=== PATIENT | female | born 1940 | race Two or more races ===

== ENCOUNTER 2023-01-15 07:33 | Inpatient (IN) | payer MEDICARE, OTHER ==
[~2023-01-15] VITALS: Ht 152.4 cm; Wt 54.0 kg
[~2023-01-15 07:33] MED LIST: CLON0.5T4 PO; ESCI10TA PO; MEMA1CAP3 PO; NEBI5TAB8 PO; OLME40TA18 PO; PANT40TA49 PO; SIMV-49 PO; SOLI5TAB2 PO
--- NOTE | 2023-01-15 07:50 | NUR ---
REceived pt 82 yrs female from home c/o abdominale pain and epegastric pain for one hr ago with nuasea examin by DR. MCKINLEY AT BED SIDE
--- NOTE | 2023-01-15 07:50 | NUR ---
INSERTED ANGO CATHETER G 22 ON RT AC BLOOD DROW AND SENT TO LAB abdominal pain 04/22 Morphin 4mg and zofran 4mg slow ivp given
[2023-01-15] MEDS ORDERED: ONDANSETRON HCL/PF 4 MG/2 ML VIAL IVP ONE (08:00)
[2023-01-15] MEDS ORDERED: ONDANSETRON HCL/PF 4 MG/2 ML VIAL ONE (08:00)
[2023-01-15] MEDS ORDERED: MORPHINE SULFATE INJ 4 MG/ML DISP.SYRIN ONE (08:01)
[2023-01-15] MEDS: MORPHINE SULFATE INJ 2 MG/ML DISP.SYRIN IV ONE ×2 (08:02→08:03)
[2023-01-15 08:17] LABS: BASOPHILS # (AUTO) 0.1 K/uL (0.0-0.2); HEMATOCRIT 43 % (33-45); LYMPHOCYTES # (AUTO) 1.3 K/uL (0.8-4.8); MEAN CORPUSCULAR HGB CONC 33 g/dl (31.0-36.0); MEAN CORPUSCULAR VOLUME 94 fL (82-100); MONOCYTES # (AUTO) 0.8 K/uL (0.1-1.30); MONOCYTES % (AUTO) 11.6 % (2.0-12.0); NEUTROPHILS # (AUTO) 4.4 K/uL (1.8-8.9); NEUTROPHILS % (AUTO) 66.4 % (43.0-81.0); PLATELET COUNT (AUTO) 255 K/uL (150-450); RED BLOOD CELL COUNT(AUTO) 4.55 MIL/uL (4.0-5.2); WHITE BLOOD COUNT (AUTO) 6.6 K/uL (4.3-11.0)
--- NOTE | 2023-01-15 08:20 | NUR ---
resting at this time
[2023-01-15 08:30] LABS: ALANINE AMINOTRANSFERASE 26 U/L (12-78); ALBUMIN 3.8 g/dL (3.4-5.0); ALKALINE PHOSPHATASE 76 U/L (46-116); ASPARTATE AMINOTRANSFERASE 17 U/L (15-37); BILIRUBIN,DIRECT 0.1 mg/dL (0.0-0.2); BILIRUBIN,TOTAL 0.3 mg/dL (0.2-1.0); CALCIUM, SERUM 9.4 mg/dL (8.5-10.1); CARBON DIOXIDE 24 mmol/L (21-32); CHLORIDE 105 mmol/L (98-107); CREATININE 1.1 mg/dL (0.6-1.3); GLUCOSE 116 mg/dL (74-106); LIPASE 158 U/L (73-393); POTASSIUM 3.3 mmol/L (3.5-5.1); SODIUM SERUM 141 mmol/L (136-145); UREA NITROGEN, BLOOD 21 mg/dL (7-18)
--- NOTE | 2023-01-15 09:05 | NUR ---
To ct scan OF ABDOMIN
[2023-01-15] MEDS ORDERED: IOHEXOL-300 100 ML VIAL IV ONE (09:08)
[2023-01-15] MEDS ORDERED: IV NS 0.9% 250 ML IV ONE ×2 (09:08→12:53)
[2023-01-15] MEDS ORDERED: CT SWABBABLE VALVE TRANS SET 1 EA INFUS.SET MC ONE ×2 (09:08→12:53)
[2023-01-15] MEDS ORDERED: ASPIRIN 325 MG TABLET PO ONE (09:30)
[2023-01-15] MEDS ORDERED: POTASSIUM CHLORIDE 20 MEQ TAB.PRT.SR PO ONE ×2 (09:30→09:50)
--- NOTE | 2023-01-15 09:46 | NUR ---
SUBMITTED MOVE SHEET
[2023-01-15] MEDS ORDERED: ASPIRIN 325 MG TABLET ONE (09:50)
--- NOTE | 2023-01-15 10:28 | NUR ---
PAGED EPIC GAS BRAZER
--- NOTE | 2023-01-15 10:52 | NUR ---
AT BED SIDE KAMRYN AT BED SIDE CONDITION UP DATE AND PLAN OF CARE
[2023-01-15] MEDS ORDERED: ACETAMINOPHEN ES 500 MG TABLET PO ONE ×2 (11:00→11:30)
[2023-01-15] MEDS ORDERED: ACETAMINOPHEN ES 500 MG TABLET ONE (11:04)
--- NOTE | 2023-01-15 11:37 | NUR ---
BED 328-1
[2023-01-15] MEDS ORDERED: HYDROCODONE/APAP 5/325MG TABLET PO PRN (12:00)
[2023-01-15] MEDS ORDERED: Z GUARD REMEDY 4 OZ OINT TP PRN (12:00)
[2023-01-15] MEDS ORDERED: MAGNESIUM HYDROXIDE 30 ML UDC PO PRN (12:00)
[2023-01-15] MEDS ORDERED: MORPHINE SULFATE INJ 2 MG/ML DISP.SYRIN IV PRN (12:00)
[2023-01-15] MEDS ORDERED: NITROGLYCERIN 0.4 MG/TAB BOTTLE SL PRN (12:00)
[2023-01-15] MEDS ORDERED: ENOXAPARIN SODIUM 40 MG/0.4 ML DISP.SYRIN SQ SCH (12:00)
[2023-01-15] MEDS ORDERED: MAG HYDROX/AL HYDROX/SIMETH 30 ML UDC PO PRN (12:00)
--- NOTE | 2023-01-15 12:00 | NUR ---
REPEAT 2ND EKG AT BED SIDE
--- NOTE | 2023-01-15 12:21 | NUR ---
HAND OFF ANU HOPKINS RN TO ROOM 328-1 VIA GARNY STABLE VS AND CONDTION DINESES CHEST PAIN
[2023-01-15] MEDS ORDERED: VENL37.591 PO (12:30)
[2023-01-15] MEDS ORDERED: OMEP40CA21 PO (12:30)
[2023-01-15] MEDS ORDERED: AMIO100T PO (12:30)
[2023-01-15] MEDS ORDERED: GABA300C PO (12:30)
[2023-01-15] MEDS ORDERED: RIVA15TA PO (12:30)
[2023-01-15] MEDS ORDERED: CLON0.5T4 PO (12:30)
[2023-01-15] MEDS ORDERED: GABA-532 PO (12:30)
[2023-01-15] MEDS ORDERED: ESCI10TA PO (12:30)
[2023-01-15] MEDS ORDERED: ROSU20TA32 PO (12:30)
[2023-01-15] MEDS ORDERED: MEMA10TA56 PO (12:30)
[2023-01-15] MEDS ORDERED: HYDR-4076 PO (12:30)
[2023-01-15] MEDS ORDERED: CHOL100043 PO (12:30)
[2023-01-15] MEDS ORDERED: SOLI5TAB2 PO (12:30)
[2023-01-15] MEDS ORDERED: OLME40TA18 PO (12:30)
--- NOTE | 2023-01-15 12:43 | NUR ---
to ct ango via kenny pt awake and alert after complet procedur will be to room 328-1
[2023-01-15] MEDS ORDERED: METOPROLOL TARTRATE INJ 5 MG/5 ML AMPUL ONE ×3 (12:53→13:12)
[2023-01-15] MEDS ORDERED: NITROGLYCERIN 0.4 MG/TAB BOTTLE ONE (12:53)
[2023-01-15] MEDS ORDERED: IOHEXOL-350 100 ML VIAL IV ONE (12:53)
[2023-01-15] MEDS: METOPROLOL TARTRATE INJ 5 MG/5 ML AMPUL IVP PRN ×4 (13:00→13:15)
[2023-01-15] MEDS ORDERED: NITROGLYCERIN 0.4 MG/TAB BOTTLE SL ONE (13:00)
[2023-01-15 14:05] VITALS: BP 147/79
[2023-01-15 14:07] LABS: CHOLESTEROL 201 mg/dL (<200); HDL CHOLESTEROL 82 mg/dL (40-60); LDL 105 mg/dL (0-99); TRIGLYCERIDES 56 mg/dL (30-150)
--- NOTE | 2023-01-15 14:15 | NUR ---
ADMISSION CHILD PROTECTIVE INVESTIGATOR NOTE (DAY SHIFT) Patient arrived to [facility], Room 328 - Bed 1, via gurney from ED. Patient presented as alert and oriented x 4 accompanied by spouse who was able to translate for her from Nepali to Chilean because patient speaks primarily Chilean, originally from [place] when part of former [place]. Patient 's vital signs stable and afebrilte, temp = 98.9 F, BP = 147 /76, HR =66, RR= 16, O2Sat= 96% on RA, c/o headache/backache of 6/10. Patient had steady gait to bathroom and back to bed. Lung sounds clear to auscultation. HR sinus rythym in 60s now with past 1st Degree AV block. Auscultated active bowel sounds in all 4 abdominal quadrants. Skin appears intact throughout whole body. Patient has # 20 gauge PIV catheter to left hand that is clean, dry, intact, and flushes patent without resistance nor any signs of IV therapy complications. Oriented patient to call hicks/light system and safety protocols. Safety measures in place: bed in lowest position; bed brakes locked on; two bed side rails up; and call hicks/light with bed side table within reach of patient. Will continue to care for and monitor patient per MD POC.
[2023-01-15] MEDS: ONDANSETRON HCL/PF 4 MG/2 ML VIAL IVP PRN ×2 (15:46→22:01)
[2023-01-15 16:00] VITALS: BP 170/54
[2023-01-15] MEDS ORDERED: clonazePAM 0.5 MG TABLET PO PRN (17:30)
[2023-01-15] MEDS ORDERED: hydrALAZINE HCL 25 MG TABLET PO PRN (17:30)
[2023-01-15] MEDS ORDERED: ATORVASTATIN 40 MG TABLET PO SCH (18:00)
[2023-01-15] MEDS: busPIRone 5 MG TABLET PO SCH (18:57)
--- NOTE | 2023-01-15 19:00 | NUR ---
POLISH MAKER CLOSING NOTE (DAY SHIFT) Patient continues to be alert and oriented x 4 on room air without any signs of respiratory distress nor chest pain. Still c/o mild nausea despite being given zofran IV .Home medications reconciliation completed. Admission screening/questionaires for inpatient admission completed. Continues on telemetry with SR in 60s HR. Safety measures maintained. Will endorse to bottom presser RNSabrina, for TAMI.
--- NOTE | 2023-01-15 19:06 | NUR ---
RN NOTES: RN NOTES: UPON ENDORSEMENT SHE WAS LOOKING SLEEPY DAUGHTER PRESENT AT BEDSIDE, A/OX2-3, ZIMBABWEAN SPEAKING, FORGETFUL WITH PERIODS OF FORGETFULNESS,ON TELE MONITOR-SR RATE=70'S, ON ROOM AIR, ON BED REST, IV CANNULA ON THE LH G#20 INTACT AND PATENT, PER ENDORSEMENT SHE WAS ANXIOUS AND WORRIED, HER BP WAS HIGH,LATEST-170/56, ABLE TO WALK WITH ASSIST, MED RECON WAS DONE AND SENT TO PHARMACY PER RN, SKIN IS INTACT, NO HISTORY OF FALL, BED ALARM ON, SHE RECEIVED ZOFRAN AROUND 1430 AND NORCO, THEN CLONAZEPAM AT AROUND 1500, BUSPAR AT 1800, DAUGHTER LOU EXPRESSED HER REQUEST TO RESUME XARELTO 15 MG Q HS. RNSHAMAR EXPLAINED TO HER SHE WAS PRESCRIBED WITH ASA AND LOVENOX RIGHT NOW BUT WE WILL COMMUNICATE TO DR. DUVALL HER CONCERN. SAFETY AND ASPIRATION PRECAUTION OBSERVED, ORIENTED TO UNIT AND STAFF KEPT CALL LIGHT WITHIN EASY REACH.ABLE TO SWALLOW WHOLE PILL. -DAUGHTER REQUEST IF CAN STAY WITH HER TONIGHT, WE EXPLAINED WE WILL COMMUNICATE WITH CN FIRST.
--- NOTE | 2023-01-15 19:27 | NUR ---
RN NOTES; OUTGOING RN COMMUNICATE WITH REGARDING DAUGHTER-LOU REQUEST NOT TO D/C HER XARELTO, OF NOW SHE IS ON ASPIRIN AND LOVENOX.AWAITING FOR DR. DUVALL RESPOND AND NEW ORDER.
--- NOTE | 2023-01-15 19:28 | NUR ---
RN NOTES: DR. DUVALL REPLIED, HER CTCA WAS DONE AND ITS NEGATIVE, WITH NEW ORDER: 1)DISCONTINUE ASPIRIN 2)DISCONTINUE LOVENOX 3)OK TO CONTINUE ON XARELTO 15 Q HS PER DAUGHTER REQUEST -LOU EXPLAINED THAT SHE TAKE HER XARELTO DAILY AT BED TIME. -AT 1930 LOU PRESENT AT BEDSIDE NOTIFIED THAT DR. DE JESUS D/C THE ASP AND LOVENOX THEN CONTINUE ON XARELTO , SHE WAS VERY GREATFUL -SHE REQUEST FOR HER FATHER TO COME IN AND STAY OVERNIGHT, DISCUSSED WITH CHARGE NURSE, PER CN WE NEED TO ASKED PERMISSION FROM THE LABEL SEWER, BUT LONG HER MOTHER IS QUIET AND NOT ANXIOUS NO NEED FOR HER FATHER TO STAY, WE WILL NOTIFY THEM IF THERE IS A NEED.SHE AGREED.DAUGHTER LEFT AT 194.
--- NOTE | 2023-01-15 19:50 | NUR ---
RN NOTES: RECEIVED CALL FROM PHARMACY.SPOKE WITH YOHAN VERIFIED ORDER RECEIVED FROM DR. DUVALL, TO START ANDREW FINCH.
[2023-01-15 20:00] VITALS: BP 135/55
--- NOTE | 2023-01-15 20:23 | NUR ---
RN NOTES: SHE LOOKS MORE RELAX HER ARRIVED, NOTIFIED HE CAN STAY FOR AWHILE, HE IS FEEDING HER NOW.
--- NOTE | 2023-01-15 20:30 | NUR ---
RN NOTES: RECEIVED CALL FROM PHARMACY/SEP, HE SAID VESICARE IS NOT PROVIDED BY OUR PHARMACY, FAMILY NEEDS TO BRING IN THE MEDICATION. -EXPLAINED TO AT BED SIDE, UNABLE TO UNDERSTAND WELL, CALLED DAUGHTER LOU, PER DAUGHTER MEDICATION WAS GIVEN TO PHARMACY UPON ADMISSION, CALLED BACK PHARMACY/SEP AND NOTIFIED, HE SAID HE WILL CHECK IT AND CALL BACK. Addendum: 01/15/23 at 2038 by ELIZABETH VAUGHN RN ADDED NOTES: MONTOYA/PHARMACIST CALLED BACK AND NOTIFIED VESICARE WAS FOUND IN THE PHARMACY BROUGHT IN BY FAMILY UPON ADMISSION. -INSTRUCT NOT TO FEED HER TOO MUCH ITS NIGHT TIME.
[2023-01-15] MEDS ORDERED: ENOXAPARIN SODIUM 60 MG/0.6 ML DISP.SYRIN SQ SCH (21:00)
[2023-01-15] MEDS: RIVAROXABAN 15 MG TABLET PO SCH ×2 (21:02→22:00)
[2023-01-15] MEDS ORDERED: GABAPENTIN 300 MG CAPSULE PO SCH (22:00)
--- NOTE | 2023-01-15 22:01 | NUR ---
RN NOTES: VOMITED ONCE AFTER DINNER, REQUEST FOR ANTIEMETIC MEDICATION, PRN GIVEN, LEFT AROUND 2200.
--- NOTE | 2023-01-15 22:17 | NUR ---
RN NOTES: NAUSEATED, ASSISTED TO THE BATHROOM, AMBULATE WELL.WITH SUPERVISION. Addendum: 01/15/23 at 2245 by ELIZABETH VAUGHN RN ADDED NOTES: SHE VOMITED SMALL AMOUNT OF HER FOOD, AND ASSISTED BACK TO HER BED, NO CHANGES IN THE TELE MONITOR, REMAIN ON SINUS RHYTHM, ACTIVITY TOLERATED, NO CHEST PAIN.ENCOURAGE TO SLEEP AFTER HE TALK TO HER OVER THE PHONE.
[2023-01-15] MEDS: ACETAMINOPHEN 325 MG TABLET PO PRN (23:37)
--- NOTE | 2023-01-15 23:37 | NUR ---
RN NOTES: CALLED AND DAUGHTER TO HELP EXPLAIN TO HER SHE NEEDS TO SLEEP, SHE COMPLAINED OF HEADACHE PER , REQUEST TO GIVE TYLENOL FOR PAIN, GIVEN.
[2023-01-16] VITALS: BP 143/43
[2023-01-16 04:00] VITALS: BP 132/51
[2023-01-16 07:00] VITALS: BP 164/68
[2023-01-16 07:30] LABS: CALCIUM, SERUM 9.1 mg/dL (8.5-10.1); PHOSPHORUS 4.2 mg/dL (2.5-4.9); POTASSIUM 3.8 mmol/L (3.5-5.1)
[2023-01-16] MEDS ORDERED: PANTOPRAZOLE 40 MG TABLET.DR PO SCH ×2 (07:30)
[2023-01-16 07:33] LABS: BASOPHILS # (AUTO) 0.1 K/uL (0.0-0.2); BASOPHILS % (AUTO) 0.7 % (0.0-2.0); EOSINOPHILS % (AUTO) 0.8 % (0.0-6.0); HEMATOCRIT 36 % (33-45); HEMOGLOBIN 12.2 g/dL (11.5-14.8); LYMPHOCYTES # (AUTO) 1.4 K/uL (0.8-4.8); LYMPHOCYTES % (AUTO) 15.1 % (20.0-44.0); MEAN CORPUSCULAR HGB CONC 34 g/dl (31.0-36.0); MEAN CORPUSCULAR VOLUME 92 fL (82-100); NEUTROPHILS # (AUTO) 6.5 K/uL (1.8-8.9); NEUTROPHILS % (AUTO) 72.4 % (43.0-81.0); PLATELET COUNT (AUTO) 227 K/uL (150-450); RED BLOOD CELL COUNT(AUTO) 3.93 MIL/uL (4.0-5.2)
--- NOTE | 2023-01-16 07:36 | NUR ---
RN NOTES: ABLE TO SLEEP AND REST,REMAINS SINUS RHYTHM, NO COMPLAINTS OF CHEST PAIN, NO MORE NAUSEA AND VOMITING, AMBULATE TO THE BATHROOM FOR LABS IN THE MORNING, ON SERIAL EKG AND TROPONIN LEVEL, FOR ECHO, CARDIO F/Y FOR CTCA AND FOR PT EVAL, ENDORSED FOR CONTINUITY OF CARE,
--- NOTE | 2023-01-16 08:18 | NUR ---
RN OPENING NOTE RECEIVED PATIENT IN BED, AO X 2-3, IRAQI/GERMAN SPEAKING. ABLE TO RESPONDS ALL PHYSICAL STIMULI. RESPIRATORY EVEN AND UNLABORED IN ROOM AIR, IN NO ACUTE RESPIRATORY DISTRESS OBSERVED. SKIN IS WARM TO TOUCH, KEEP CLEAN/DRY. KEPT ELEVATED HOB FOR ASPIRATION PRECAUTION AND ENSURE AIRWAY, ALSO LOWEST BED POSITIONED. BED ALARM IS ON AT ALL TIMES FOR SAFETY. CALL LIGHT WITHIN REACH, WILL CONTINUE TO MONITOR.
[2023-01-16] MEDS: busPIRone 5 MG TABLET PO SCH ×2 (08:28→13:00)
--- NOTE | 2023-01-16 08:34 | NUR ---
HELD ONE OF DOSE PROTONIC DUE TO DUPLICATE.
[2023-01-16] MEDS ORDERED: ASPIRIN EC 81 MG TABLET.DR PO SCH (09:00)
[2023-01-16] MEDS ORDERED: VENLAFAXINE XR 37.5 MG CAP.SR.24H PO SCH (09:00)
[2023-01-16] MEDS ORDERED: RIVAROXABAN 15 MG TABLET PO SCH (09:00)
[2023-01-16] MEDS ORDERED: LOSARTAN POTASSIUM 50 MG TABLET PO SCH (09:00)
[2023-01-16] MEDS ORDERED: MEMANTINE HCL 5 MG TABLET PO SCH (09:00)
[2023-01-16] MEDS ORDERED: ESCITALOPRAM OXALATE (10 MG) 10 MG TABLET PO SCH (09:00)
[2023-01-16] MEDS ORDERED: GABAPENTIN 100 MG CAPSULE PO SCH (09:00)
[2023-01-16] MEDS ORDERED: VESICARE 5 MG PO SCH (09:00)
[2023-01-16] MEDS ORDERED: CHOLECALCIFEROL 1,000 UNIT TABLET (VIT D3) PO SCH (09:00)
--- NOTE | 2023-01-16 10:30 | NUR ---
GIVEN UPDATE TO THE GRAND SON; SHANNON ROQUE WHO WANTS TALK WITH MD. BERG AND GIVEN HIS NUMBER TO DR. CAICEDO.
[2023-01-16] MEDS: ACETAMINOPHEN 325 MG TABLET PO PRN (11:14)
--- NOTE | 2023-01-16 11:50 | NUR ---
PATIENT C/O HEADACHE, GIVEN TYLENOL 650 MG, AND NO FURTHER HEADACHE AT THIS TIME.
[2023-01-16 12:00] VITALS: BP 145/67
--- NOTE | 2023-01-16 12:44 | NUR ---
PATIENT C/O HAVE NO BM MORE THAN COUPLE OF DAYS. NEW ORDER DULCOLAX 5MG PRN. NOTED AND CARRY OUT.
[2023-01-16] MEDS ORDERED: BISACODYL (5 MG) 5 MG TABLET.DR PO PRN (13:00)
--- NOTE | 2023-01-16 13:18 | NUR ---
PATIENT C/O DIZZINESS, WILL HOLD BUSPAR.
--- NOTE | 2023-01-16 16:20 | NUR ---
PATIENT D/C TO HOME WITH HOME HEALTH, GIVEN DISCHARGE INSTRUCTION INCLUDE FOLLOW UP PRIMARY CARE IN ONE WEEK. PATIENT IN STABLE CONDITION, IN NO DISTRESS OBSERVED. LEFT FACILITY WITH WHEEL CHAIR ESCORTED BY STAFF TO THE PRIVATE CAR.
== END 2023-01-16 16:23 | disposition home or self-care (01) | DRG 281 ==
LOC: ER 08:21 → TELE 12:35
DX: I21.4 Non-ST elevation (NSTEMI) myocardial infarction (principal); I11.9 Hypertensive heart disease without heart failure; E87.6 Hypokalemia; E78.5 Hyperlipidemia, unspecified; J98.11 Atelectasis; I25.10 Atherosclerotic heart disease of native coronary artery without angina pectoris; I25.84 Coronary atherosclerosis due to calcified coronary lesion; F03.90 Unspecified dementia, unspecified severity, without behavioral disturbance, psychotic disturbance, mood disturbance, and anxiety; I08.0 Rheumatic disorders of both mitral and aortic valves; Z20.822 Contact with and (suspected) exposure to COVID-19; R10.13 Epigastric pain; K21.9 Gastro-esophageal reflux disease without esophagitis; K44.9 Diaphragmatic hernia without obstruction or gangrene; Z79.899 Other long term (current) drug therapy
CPT/HCPCS: 36415; 71045-TC; 75574; 80048-TC; 80061-TC; 80076-TC; 82962-TC; 83605-TC; 83690-TC; 83735-TC; 84100-TC; 84443-TC; 84484-TC; 85025-TC; 87081-TC; 93307-TC; C9803; G0378; J2270; J2405; J3490; J7030; J7050; Q9967

== ENCOUNTER 2023-01-23 07:41 | Emergency (ER) | payer MEDICARE, OTHER ==
[~2023-01-23] VITALS: Ht 157.5 cm; Wt 51.7 kg
[~2023-01-23 07:41] MED LIST changes: +AMIO100T PO; +CHOL100043 PO; +GABA-532 PO; +GABA300C PO; +HYDR-4076 PO; +MEMA10TA56 PO; -MEMA1CAP3 PO; -NEBI5TAB8 PO; +OMEP40CA21 PO; -PANT40TA49 PO; +RIVA15TA PO; +ROSU20TA32 PO; -SIMV-49 PO; +VENL37.591 PO
[2023-01-23] MEDS ORDERED: ONDANSETRON HCL/PF 4 MG/2 ML VIAL ONE (08:24)
[2023-01-23] MEDS ORDERED: MAG HYDROX/AL HYDROX/SIMETH 30 ML UDC ONE (08:24)
[2023-01-23] MEDS ORDERED: LIDOCAINE VISCOUS 2% UD 15 ML UDC ONE (08:25)
[2023-01-23] MEDS ORDERED: MAG HYDROX/AL HYDROX/SIMETH 30 ML UDC PO ONE (08:30)
[2023-01-23] MEDS ORDERED: ONDANSETRON HCL/PF 4 MG/2 ML VIAL IV ONE (08:30)
[2023-01-23] MEDS ORDERED: LIDOCAINE VISCOUS 2% UD 15 ML UDC MM ONE (08:30)
[2023-01-23] MEDS ORDERED: IV NS 0.9% 1,000 ML IV ONE (08:30)
--- NOTE | 2023-01-23 08:36 | NUR ---
PT EDUCATED ON THE NEED FOR URINE SAMPLE USING SET UP MACHINIST SERVICES. PT VERBALIZED UNDERSTANDING. PT STATES "NOT RIGHT NOW, I JUST WANT TO LAY HERE". ERLINDA ARENAS MADE AWARE
[2023-01-23] MEDS ORDERED: ACETAMINOPHEN 325 MG TABLET ONE (08:53)
[2023-01-23 08:55] LABS: CALCIUM, SERUM 9.5 mg/dL (8.5-10.1); CARBON DIOXIDE 30 mmol/L (21-32); CHLORIDE 105 mmol/L (98-107); GLUCOSE 107 mg/dL (74-106); POTASSIUM 3.9 mmol/L (3.5-5.1); SODIUM SERUM 145 mmol/L (136-145); UREA NITROGEN, BLOOD 19 mg/dL (7-18)
[2023-01-23] MEDS ORDERED: ACETAMINOPHEN 325 MG TABLET PO ONE (09:00)
[2023-01-23 09:08] LABS: BASOPHILS # (AUTO) 0.1 K/uL (0.0-0.2); BASOPHILS % (AUTO) 0.8 % (0.0-2.0); EOSINOPHILS % (AUTO) 0.5 % (0.0-6.0); HEMATOCRIT 41 % (33-45); HEMOGLOBIN 13.4 g/dL (11.5-14.8); LYMPHOCYTES # (AUTO) 0.9 K/uL (0.8-4.8); LYMPHOCYTES % (AUTO) 10.2 % (20.0-44.0); MEAN CORPUSCULAR HGB CONC 33 g/dl (31.0-36.0); MEAN CORPUSCULAR VOLUME 94 fL (82-100); MONOCYTES % (AUTO) 11.9 % (2.0-12.0); NEUTROPHILS # (AUTO) 6.5 K/uL (1.8-8.9); NEUTROPHILS % (AUTO) 76.6 % (43.0-81.0); PLATELET COUNT (AUTO) 211 K/uL (150-450); RED BLOOD CELL COUNT(AUTO) 4.37 MIL/uL (4.0-5.2); WHITE BLOOD COUNT (AUTO) 8.5 K/uL (4.3-11.0)
--- NOTE | 2023-01-23 09:14 | NUR ---
URINE SAMPLE OBTAINED AND SENT TO LAB
[2023-01-23 09:29] LABS: BILIRUBIN,URINE NEGATIVE (NEGATIVE); COLOR,URINE YELLOW (YELLOW); LEUKOCYTE ESTERASE ,URINE NEGATIVE (NEGATIVE); NITRITE, URINE NEGATIVE (NEGATIVE); PROTEIN,URINE NEGATIVE (NEGATIVE); UGLUCOSE NEGATIVE (NEGATIVE); UROBILINOGEN,URINE 0.2 EU/dL (0.2)
[2023-01-23 09:33] LABS: ALANINE AMINOTRANSFERASE 29 U/L (12-78); ALBUMIN 3.7 g/dL (3.4-5.0); ALKALINE PHOSPHATASE 70 U/L (46-116); ASPARTATE AMINOTRANSFERASE 17 U/L (15-37); BILIRUBIN,DIRECT 0.1 mg/dL (0.0-0.2); BILIRUBIN,TOTAL 0.2 mg/dL (0.2-1.0); LIPASE 119 U/L (73-393); TOTAL PROTEIN, SERUM 6.8 g/dL (6.4-8.2)
[2023-01-23] MEDS ORDERED: OMEP20TA20 PO (09:45)
[2023-01-23] MEDS ORDERED: ONDA4TAB11 PO (09:46)
[2023-01-23 10:10] VITALS: BP 168/84
== END 2023-01-23 10:11 | disposition home or self-care (01) ==
LOC: ER 07:57
DX: R10.84 Generalized abdominal pain (principal); R11.0 Nausea; I10 Essential (primary) hypertension; K21.9 Gastro-esophageal reflux disease without esophagitis; Z90.49 Acquired absence of other specified parts of digestive tract; Z79.899 Other long term (current) drug therapy
CPT/HCPCS: 99285; 74176; 96374; 96361; 85025; 80048; 83690; 80076; 81003; 36415; J2405; J7030; A4223

== ENCOUNTER 2023-02-11 00:04 | Emergency (ER) | payer MEDICARE, OTHER ==
[~2023-02-11] VITALS: Ht 149.9 cm; Wt 55.6 kg
[~2023-02-11 00:04] MED LIST changes: +OMEP20TA20 PO; +ONDA4TAB11 PO
[2023-02-11] MEDS ORDERED: IV NS 0.9% 1,000 ML IV ONE (00:30)
[2023-02-11] MEDS ORDERED: MORPHINE SULFATE INJ 2 MG/ML DISP.SYRIN IV ONE (00:30)
--- NOTE | 2023-02-11 00:31 | NUR ---
PT IS PRIMARY NICARAGUAN SPEAKING, INFORMED HER WAS ASLEEP AT HOME AND DOES NOT KNOW SHE IS AT THE HOS..."I AM NOT SURE BUT I THINK HIS NUMBER IS [phone]" ALETHA
--- NOTE | 2023-02-11 00:40 | NUR ---
Janet AOx4, able to express concerns. Primary language is [place] but patient able to express concerns in kinyarwanda. States she has been having abdominal pain for a while, questions what she has been eating. Discussed plan of care, patient verbalized agreement. All safety precautions taken.
[2023-02-11] MEDS ORDERED: MORPHINE SULFATE INJ 4 MG/ML DISP.SYRIN ONE (00:43)
[2023-02-11 01:24] LABS: BASOPHILS # (AUTO) 0.1 K/uL (0.0-0.2); EOSINOPHILS % (AUTO) 0.9 % (0.0-6.0); HEMATOCRIT 42 % (33-45); HEMOGLOBIN 13.9 g/dL (11.5-14.8); LYMPHOCYTES % (AUTO) 11.3 % (20.0-44.0); MEAN CORPUSCULAR HGB CONC 33 g/dl (31.0-36.0); MEAN CORPUSCULAR VOLUME 95 fL (82-100); MONOCYTES # (AUTO) 1.1 K/uL (0.1-1.30); MONOCYTES % (AUTO) 11.5 % (2.0-12.0); NEUTROPHILS % (AUTO) 75.3 % (43.0-81.0); PLATELET COUNT (AUTO) 234 K/uL (150-450); RED BLOOD CELL COUNT(AUTO) 4.46 MIL/uL (4.0-5.2); WHITE BLOOD COUNT (AUTO) 9.3 K/uL (4.3-11.0)
[2023-02-11 01:38] LABS: BILIRUBIN,URINE NEGATIVE (NEGATIVE); COLOR,URINE YELLOW (YELLOW); LEUKOCYTE ESTERASE ,URINE 3+ (NEGATIVE); NITRITE, URINE NEGATIVE (NEGATIVE); PROTEIN,URINE NEGATIVE (NEGATIVE); UGLUCOSE NEGATIVE (NEGATIVE); UROBILINOGEN,URINE 0.2 EU/dL (0.2)
[2023-02-11 01:39] LABS: BACTERIA,URINE Rare /HPF (None Seen); RBC,URINE 0-2 /HPF (0-2); SQUAMOUS EPITHELIAL CELL,UR Few /HPF (None Seen)
[2023-02-11 01:43] LABS: CALCIUM, SERUM 9.7 mg/dL (8.5-10.1); CARBON DIOXIDE 25 mmol/L (21-32); CHLORIDE 104 mmol/L (98-107); CREATININE 1.1 mg/dL (0.6-1.3); GLUCOSE 112 mg/dL (74-106); POTASSIUM 4.1 mmol/L (3.5-5.1); SODIUM SERUM 140 mmol/L (136-145); UREA NITROGEN, BLOOD 22 mg/dL (7-18)
[2023-02-11 01:47] LABS: ALANINE AMINOTRANSFERASE 29 U/L (12-78); ALBUMIN 3.9 g/dL (3.4-5.0); ALKALINE PHOSPHATASE 71 U/L (46-116); ASPARTATE AMINOTRANSFERASE 31 U/L (15-37); BILIRUBIN,TOTAL 0.6 mg/dL (0.2-1.0); LIPASE 124 U/L (73-393); TOTAL PROTEIN, SERUM 7.5 g/dL (6.4-8.2)
[2023-02-11] MEDS ORDERED: FAMOTIDINE/PF INJ 20 MG/2 ML VIAL IV ONE ×2 (02:00→02:06)
[2023-02-11] MEDS ORDERED: ONDANSETRON HCL/PF - ER 4 MG/2 ML VIAL IV ONE (02:00)
[2023-02-11] MEDS ORDERED: KETOROLAC TROMETHAMINE INJ 30 MG/ML VIAL IV ONE (02:00)
[2023-02-11] MEDS ORDERED: KETOROLAC TROMETHAMINE INJ 30 MG/ML VIAL ONE (02:06)
[2023-02-11] MEDS ORDERED: ONDANSETRON HCL/PF 4 MG/2 ML VIAL ONE (02:06)
[2023-02-11] MEDS ORDERED: CEFTRIAXONE 1GM BAG (ER ONLY) 1 GM/50 ML PIGGYBACK IV ONE (02:30)
[2023-02-11] MEDS ORDERED: CEFTRIAXONE 1GM BAG (ER ONLY) 50 ML IV ONE (02:35)
[2023-02-11] MEDS ORDERED: CEPH500T PO (04:14)
[2023-02-11 04:35] VITALS: BP 138/60
== END 2023-02-11 04:35 | disposition home or self-care (01) ==
LOC: ER 00:09
DX: N39.0 Urinary tract infection, site not specified (principal); R33.9 Retention of urine, unspecified; I10 Essential (primary) hypertension; K21.9 Gastro-esophageal reflux disease without esophagitis; Z90.89 Acquired absence of other organs; Z88.2 Allergy status to sulfonamides; Z88.8 Allergy status to other drugs, medicaments and biological substances; Z60.2 Problems related to living alone; Z79.899 Other long term (current) drug therapy
CPT/HCPCS: 99285; 74176; 96365; 96375; 96361; 51702; 85025; 80048; 87086; 83690; 80076; 81001; 36415; J2270; J3490; J1885; J2405; J7030; J0696

== ENCOUNTER 2023-04-09 08:45 | Inpatient (IN) | payer MEDICARE, OTHER ==
[~2023-04-09] VITALS: Ht 152.4 cm; Wt 50.8 kg
[~2023-04-09 08:45] MED LIST changes: +CEPH500T PO
[2023-04-09] MEDS ORDERED: MORPHINE SULFATE INJ 2 MG/ML DISP.SYRIN ONE (09:03)
[2023-04-09 09:05] LABS: BASOPHILS % (AUTO) 0.6 % (0.0-2.0); EOSINOPHILS % (AUTO) 1.5 % (0.0-6.0); HEMATOCRIT 38 % (33-45); HEMOGLOBIN 12.6 g/dL (11.5-14.8); LYMPHOCYTES # (AUTO) 1.1 K/uL (0.8-4.8); LYMPHOCYTES % (AUTO) 13.5 % (20.0-44.0); MEAN CORPUSCULAR HGB CONC 33 g/dl (31.0-36.0); MEAN CORPUSCULAR VOLUME 96 fL (82-100); MONOCYTES # (AUTO) 1.1 K/uL (0.1-1.30); MONOCYTES % (AUTO) 13.5 % (2.0-12.0); NEUTROPHILS # (AUTO) 5.6 K/uL (1.8-8.9); NEUTROPHILS % (AUTO) 70.9 % (43.0-81.0); PLATELET COUNT (AUTO) 220 K/uL (150-450); RED BLOOD CELL COUNT(AUTO) 3.92 MIL/uL (4.0-5.2); WHITE BLOOD COUNT (AUTO) 7.8 K/uL (4.3-11.0)
[2023-04-09 09:21] LABS: CALCIUM, SERUM 9.2 mg/dL (8.5-10.1); CARBON DIOXIDE 26 mmol/L (21-32); CHLORIDE 106 mmol/L (98-107); CREATININE 1.2 mg/dL (0.6-1.3); GLUCOSE 113 mg/dL (74-106); POTASSIUM 3.5 mmol/L (3.5-5.1); SODIUM SERUM 137 mmol/L (136-145); UREA NITROGEN, BLOOD 23 mg/dL (7-18)
[2023-04-09] MEDS ORDERED: MORPHINE SULFATE INJ 2 MG/ML DISP.SYRIN IV ONE (09:30)
[2023-04-09 09:34] LABS: ALANINE AMINOTRANSFERASE 19 U/L (12-78); ALBUMIN 3.3 g/dL (3.4-5.0); ALKALINE PHOSPHATASE 54 U/L (46-116); ASPARTATE AMINOTRANSFERASE 11 U/L (15-37); BILIRUBIN,DIRECT 0.1 mg/dL (0.0-0.2); BILIRUBIN,TOTAL 0.4 mg/dL (0.2-1.0); TOTAL PROTEIN, SERUM 6.6 g/dL (6.4-8.2)
[2023-04-09] MEDS ORDERED: ASPIRIN EC 325 MG TABLET.DR PO ONE ×2 (11:58→12:00)
[2023-04-09] MEDS ORDERED: OLAN2.5T3 PO (15:13)
[2023-04-09] MEDS ORDERED: ONDA4TAB5 PO (15:13)
[2023-04-09] MEDS ORDERED: SERT100T PO (15:13)
[2023-04-09 15:57] VITALS: O2SAT 98
[2023-04-09] MEDS ORDERED: HYDROCODONE/APAP 5/325MG TABLET PO PRN (19:30)
[2023-04-09] MEDS ORDERED: MAGNESIUM HYDROXIDE 30 ML UDC PO PRN (19:30)
[2023-04-09] MEDS: NITROGLYCERIN PACKET 1 GM PACKET TOP SCH (19:30)
[2023-04-09] MEDS ORDERED: ONDANSETRON HCL/PF 4 MG/2 ML VIAL IVP PRN (19:30)
[2023-04-09] MEDS ORDERED: ACETAMINOPHEN 325 MG TABLET PO PRN (19:30)
[2023-04-09] MEDS ORDERED: Z GUARD REMEDY 4 OZ OINT TP PRN (19:30)
[2023-04-09 20:00] VITALS: BP 118/47; TEMP 98; O2SAT 96
[2023-04-09] MEDS ORDERED: OLANZAPINE 2.5 MG TABLET PO SCH (22:00)
[2023-04-10] VITALS: BP 136/50; TEMP 98.2; O2SAT 96
[2023-04-10 04:00] VITALS: BP 108/43; TEMP 97.7; O2SAT 95
[2023-04-10 07:17] LABS: BASOPHILS # (AUTO) 0.1 K/uL (0.0-0.2); BASOPHILS % (AUTO) 0.7 % (0.0-2.0); HEMATOCRIT 33 % (33-45); HEMOGLOBIN 10.9 g/dL (11.5-14.8); LYMPHOCYTES # (AUTO) 1.6 K/uL (0.8-4.8); LYMPHOCYTES % (AUTO) 22.6 % (20.0-44.0); MEAN CORPUSCULAR HGB CONC 33 g/dl (31.0-36.0); MEAN CORPUSCULAR VOLUME 96 fL (82-100); MONOCYTES # (AUTO) 0.9 K/uL (0.1-1.30); MONOCYTES % (AUTO) 12.1 % (2.0-12.0); NEUTROPHILS # (AUTO) 4.4 K/uL (1.8-8.9); NEUTROPHILS % (AUTO) 61.6 % (43.0-81.0); PLATELET COUNT (AUTO) 185 K/uL (150-450); RED BLOOD CELL COUNT(AUTO) 3.44 MIL/uL (4.0-5.2); WHITE BLOOD COUNT (AUTO) 7.1 K/uL (4.3-11.0)
[2023-04-10] MEDS ORDERED: PANTOPRAZOLE 40 MG TABLET.DR PO SCH (07:30)
[2023-04-10 07:38] LABS: CALCIUM, SERUM 8.7 mg/dL (8.5-10.1); MAGNESIUM 2.3 mg/dL (1.8-2.4); PHOSPHORUS 3.5 mg/dL (2.5-4.9)
[2023-04-10 08:00] VITALS: BP 137/64; TEMP 97.7; O2SAT 100
[2023-04-10 08:33] VITALS: BP 137/56
[2023-04-10] MEDS: NITROGLYCERIN PACKET 1 GM PACKET TOP SCH (08:33)
[2023-04-10] MEDS ORDERED: LOSARTAN POTASSIUM 50 MG TABLET PO SCH (09:00)
[2023-04-10] MEDS ORDERED: CHOLECALCIFEROL 1,000 UNIT TABLET (VIT D3) PO SCH (09:00)
[2023-04-10] MEDS ORDERED: MEMANTINE HCL 5 MG TABLET PO SCH (09:00)
[2023-04-10] MEDS ORDERED: AMIODARONE HCL 200 MG TABLET PO SCH (09:00)
[2023-04-10] MEDS ORDERED: RIVAROXABAN 15 MG TABLET PO SCH (09:00)
[2023-04-10] MEDS ORDERED: SERTRALINE HCL 50 MG TABLET PO SCH (09:00)
[2023-04-10] MEDS ORDERED: ATORVASTATIN 40 MG TABLET PO SCH (18:00)
== END 2023-04-10 13:22 | disposition home or self-care (01) | DRG 282 ==
LOC: ER 08:54 → TELE 14:30
PROVIDERS: ADMIT Nurse Practitioner Family; ATTEND Nurse Practitioner Family
DX: I48.92 Unspecified atrial flutter (principal); I21.A1 Myocardial infarction type 2; R07.9 Chest pain, unspecified; R79.89 Other specified abnormal findings of blood chemistry; I10 Essential (primary) hypertension; F03.90 Unspecified dementia, unspecified severity, without behavioral disturbance, psychotic disturbance, mood disturbance, and anxiety; E78.5 Hyperlipidemia, unspecified; I08.0 Rheumatic disorders of both mitral and aortic valves; I25.118 Atherosclerotic heart disease of native coronary artery with other forms of angina pectoris; I25.2 Old myocardial infarction; K21.9 Gastro-esophageal reflux disease without esophagitis; M19.90 Unspecified osteoarthritis, unspecified site; Z79.01 Long term (current) use of anticoagulants; Z79.899 Other long term (current) drug therapy; Z82.49 Family history of ischemic heart disease and other diseases of the circulatory system; Z88.1 Allergy status to other antibiotic agents; Z88.2 Allergy status to sulfonamides; Z88.3 Allergy status to other anti-infective agents; Z90.49 Acquired absence of other specified parts of digestive tract; Z87.440 Personal history of urinary (tract) infections
CPT/HCPCS: 36415; 71045-TC; 80048-TC; 80076-TC; 83735-TC; 83880; 84100-TC; 84484-TC; 85025-TC; G0378; J2270

== ENCOUNTER 2023-07-16 18:08 | Emergency (ER) | payer MEDICARE, OTHER ==
[~2023-07-16] VITALS: Ht 160 cm; Wt 49.9 kg
[~2023-07-16 18:08] MED LIST changes: -CEPH500T PO; -CLON0.5T4 PO; -ESCI10TA PO; -GABA-532 PO; -GABA300C PO; +OLAN2.5T3 PO; -OMEP20TA20 PO; -OMEP40CA21 PO; -ONDA4TAB11 PO; +ONDA4TAB5 PO; +SERT100T PO; -VENL37.591 PO
[2023-07-16] MEDS ORDERED: MAG HYDROX/AL HYDROX/SIMETH 30 ML UDC ONE (19:11)
[2023-07-16] MEDS ORDERED: ONDANSETRON 4 MG TAB.RAPDIS ONE (19:11)
[2023-07-16] MEDS ORDERED: ONDANSETRON 4 MG TAB.RAPDIS SL ONE (19:30)
[2023-07-16] MEDS ORDERED: MAG HYDROX/AL HYDROX/SIMETH 30 ML UDC PO ONE (19:30)
[2023-07-16] MEDS ORDERED: ONDA4TAB11 PO (19:40)
[2023-07-16] MEDS ORDERED: PANT20TA2 PO (19:50)
[2023-07-16 20:54] VITALS: BP 151/75; TEMP 98.4; O2SAT 100
== END 2023-07-16 20:54 | disposition home or self-care (01) ==
LOC: ER 18:08
DX: R11.0 Nausea (principal); I10 Essential (primary) hypertension; K21.9 Gastro-esophageal reflux disease without esophagitis; Z98.890 Other specified postprocedural states; Z79.899 Other long term (current) drug therapy; Z60.2 Problems related to living alone; Z88.2 Allergy status to sulfonamides; Z88.1 Allergy status to other antibiotic agents
CPT/HCPCS: 99283; Q0162